=== PATIENT | male | born 1930 | race Caucasian/White ===

== ENCOUNTER 2017-08-03 16:48 | Inpatient (IN) | payer OTHER ==
--- NOTE | 2017-08-03 16:53 | EDPHY ---
HPI/HX/ROS/PE/MDM Narrative: CHIEF COMPLAINT: Bradycardia HPI: This patient is an 87 year old male with history of CAD and bioprosthetic aortic valve placement arriving at the request of his section hand helper, Dr. Whatley, for evaluation of bradycardia. Today, he had a routine followup with Dr. Whatley and was describing an episode of hypertension and bradycardia during a dental procedure several days ago. EKG at that visit showed background sinus rhythm with evidence of complete heart block. Dr. Whatley recommended he present to the emergency department for further evaluation and admission for cardiac monitoring with a possibility for permanent pacemaker implantation tomorrow morning. The patient states he generally feels well and is asymptomatic today. No chest pain or shortness of breath. He denies history of syncope. The patient and his daughter are aware of this plan and have no further complaints. REVIEW OF SYSTEMS: Aside from elements discussed in the HPI, a comprehensive 10-point review of systems was reviewed and is negative. PMH: 1. Aortic valve disease s/p bioprosthetic AVR 2. Asthma 3. Coronary artery disease s/p CABG 4. Colon cancer s/p partial colectomy 5. Hypothyroid 6. Hernia surgery 7. Back injury (starburst fracture) SOCIAL HISTORY: Nonsmoker. Daughter at bedside. Lives in [place]. Retired. PHYSICAL EXAM: General:Patient is alert, in no acute distress. ENT:Eyes are normal to inspection. ENT inspection normal. Neck: Normal inspection. Full range of motion. Respiratory:No respiratory distress. Breath sounds normal bilaterally. Cardiovascular: Regular bradycardia. Strong peripheral pulses. Normal cap refill. Abdomen:The abdomen is nontender to palpation. There are no peritoneal signs. There are normal bowel sounds. Back: Normal to inspection. No tenderness to palpation. Skin: Normal color. No rash. Warm and dry. Extremities: Normal appearance. Full range of motion. Neuro: Oriented x3. Normal motor function. Normal sensory function. ED Course: This 87 y/o male with history of CAD and bioprosthetic AVR presents for evaluation of bradycardia and admission for perioperative management of pacemaker placement. Exam reveals regular bradycardia. Records from the patient' s visit earlier today with Dr. Whatley were reviewed including EKG suggesting complete heart block. Plan for repeat EKG, chest x-ray, labs including CBC, BMP , Coag, Troponin. EKG was ordered and interpreted by myself. Please see [employer] system for official reading. Chest x-ray shows cardiomegaly, no infiltrate. Troponin negative. Laboratory studies otherwise unremarkable. 17:[address] Glynn, hospitalist. He accepts admission for complete heart block. - Data Points Imaging Results: Imaging Impressions Chest X-Ray 08/03/17 16:53 Impression: Cardiomegaly. No failure or effusion. Laboratory Results: Laboratory Results 08/03/17 17:02 08/03/17 17:02 08/03/17 08/03/17 08/03/17 17:02 17:02 17:02 WBC 11.85 10^3/uL H 10^3/uL (3.80-9.50) RBC 4.87 10^6/uL 10^6/uL (4.40-6.38) Hgb 15.1 g/dL g/dL (13.7-17.5) Hct 45.1 % % (40.0-51.0) MCV 92.6 fL fL (81.5-99.8) MCH 31.0 pg pg (27.9-34.1) MCHC 33.5 g/dL g/dL (32.4-36.7) RDW 13.2 % % (11.5-15.2) Plt Count 236 10^3/uL 10^3/uL (150-400) MPV 10.1 fL fL (8.7-11.7) Neut % (Auto) 59.5 % % (39.3-74.2) Lymph % (Auto) 22.6 % % (15.0-45.0) Smyth % (Auto) 8.9 % % (4.5-13.0) Eos % (Auto) 8.0 % H % (0.6-7.6) Baso % (Auto) 0.4 % % (0.3-1.7) Nucleat RBC Rel Count 0.0 % % (0.0-0.2) Absolute Neuts (auto) 7.04 10^3/uL H 10^3/uL (1.70-6.50) Absolute Lymphs (auto) 2.68 10^3/uL 10^3/uL (1.00-3.00) Absolute Monos (auto) 1.06 10^3/uL H 10^3/uL (0.30-0.80) Absolute Eos (auto) 0.95 10^3/uL H 10^3/uL (0.03-0.40) Absolute Basos (auto) 0.05 10^3/uL 10^3/uL (0.02-0.10) Absolute Nucleated RBC 0.00 10^3/uL 10^3/uL (0-0.01) Immature Gran % 0.6 % % (0.0-1.1) Immature Gran # 0.07 10^3/uL 10^3/uL (0.00-0.10) PT 13.0 SEC SEC (12.0-15.0) INR 0.96 (0.83-1.16) APTT 26.9 SEC SEC (23.0-38.0) Sodium 144 mEq/L mEq/L (135-145) Potassium 4.5 mEq/L mEq/L (3.5-5.2) Chloride 104 mEq/L mEq/L (97-110) Carbon Dioxide 24 mEq/l mEq/l (22-31) Anion Gap 16 mEq/L mEq/L (8-16) BUN 32 mg/dL H mg/dL (7-23) Creatinine 1.1 mg/dL mg/dL (0.7-1.3) Estimated GFR > 60 Glucose 89 mg/dL mg/dL (70-100) Calcium 9.1 mg/dL mg/dL (8.5-10.4) Troponin I 0.012 ng/mL ng/mL (0.000-0.034) General Time Seen by Provider: 08/03/17 16:52 Initial Vital Signs: Initial Vital Signs Temperature (C) 36.6 C 08/03/17 16:56 Heart Rate 42 L 08/03/17 16:56 Respiratory Rate 17 08/03/17 16:56 Blood Pressure 192/113 H 08/03/17 16:56 O2 Sat (%) 96 08/03/17 16:56 O2 Delivery Mode Room Air O2 (L/minute) 2 Allergies/Adverse Reactions: No Known Allergies Allergy (Unverified 08/03/17 17:02) Home Medications: Medication Instructions Recorded Albuterol [Proventil Inhaler HFA 1 - 2 puffs IH Q4H PRN 08/03/17 (*)] Departure - Departure Disposition: [facility] Acute Clinical Impression: Heart block Condition: Fair Report Scribed for: Richard Locke Report Scribed by: Romina De Leon Date of Report: 08/03/17 Time of Report: 16:53 Physician Review and Approval Statement: Portions of this note were transcribed by an ED scribe. I personally performed the history, physical exam, and medical decision making; and confirm the accuracy of the information in the transcribed note.
--- NOTE | 2017-08-03 17:01 | CPEKG ---
Heart Rate: 42 RR Interval: 1429 QRSD Interval: 110 QT Interval: 508 QTC Interval: 425 QRS [place]: -12 T Wave [place]: 217 EKG Severity - ABNORMAL ECG - EKG Impression: third degree heart block EKG Impression: NONSPECIFIC INTRAVENTRICULAR CONDUCTION DELAY EKG Impression: INFERIOR INFARCT, AGE INDETERMINATE Electronically Signed By: Garret Cervantes 04-Aug-2017 12:35:26
[2017-08-03 17:15] LABS: PLATELET COUNT 236 10^3/uL (150-400)
[2017-08-03 17:33] LABS: INR 0.96 (0.83-1.16)
[2017-08-03] MEDS ORDERED: ACETAMINOPHEN 325 MG TAB PO PRN (18:38)
[2017-08-03] MEDS ORDERED: ATROPINE SULFATE 1 MG/10 ML SYR ONE (18:40)
[2017-08-03] MEDS ORDERED: ALBUTEROL 60 PUFFS/8 GM MDI IH PRN (18:40)
--- NOTE | 2017-08-03 21:26 | GHP ---
[f rep st] HISTORY AND PHYSICAL DATE OF ADMISSION: 08/03/2017 CHIEF COMPLAINT: Third-degree heart block. HISTORY OF PRESENT ILLNESS: An 87-year-old man with a history of coronary artery disease and CABG pr esents after being sent in from Dr. Whatley's office in third-degree heart block. He has been having s ome dental work done. It was noticed about a month ago that he was bradycardic with an irregular hea rt rate. Recommended that he follow up with his sailboat captain, which he did today. When he saw Dr. Alok murphy, he was found to be in third-degree heart block. Thus, sent into the emergency department for f urther management. He has no chest pain. He has not had any syncope. He has no dizziness or lightheadedness. He has m lamberto felt a little bit more fatigued over the last few months. PAST MEDICAL/SURGICAL HISTORY: 1. Aortic valve disease, status post bioprosthetic AVR. 2. Asthma. 3. Back injury. 4. Back pain. 5. Coronary artery disease. 6. Colon cancer, status post colectomy. 7. Hypothyroid. MEDICATIONS: Please see medication reconciliation. ALLERGIES: No known drug allergies. FAMILY HISTORY: Reviewed and noncontributory. SOCIAL HISTORY: Lives with his . He does not drink or smoke. REVIEW OF SYSTEMS: A 10-point review of systems is conducted and is negative except per HPI. PHYSICAL EXAMINATION: VITAL SIGNS: Blood pressure 192/113, heart rate 42, respiration rate 17, satu rating 96% on room air. Temperature 36.6. GENERAL: Very pleasant man who appears comfortable, in n o acute distress. HEENT: Normocephalic, atraumatic. CARDIOVASCULAR: Irregular. He is bradycardic . He has a sternotomy scar. EXTREMITIES: Warm and well perfused. PULMONARY: Lungs are clear to a uscultation bilaterally. ABDOMEN: Soft, nontender, nondistended. SKIN: No rash. : No Funez. NEUROLOGIC: Alert and oriented x3. He is moving all extremities. PSYCHIATRIC: Normal mood and aff ect. LABORATORY: White count 11.8. INR 0.96. Creatinine is 1.1. Troponin is 0.012. IMAGING: Chest x-ray, which I personally viewed and interpreted, shows status post sternotomy. Card iomegaly. No infiltrates. EKG shows third-degree heart block. IMPRESSION AND PLAN: 1. Third-degree heart block: Suspect that this is progression of heart disease with conduction dise ase. Would also have to consider endocarditis though he has no other signs or symptoms of endocardit is. If he has a fever, we will draw blood cultures but otherwise would not. Plan is for pacemaker t omorrow morning. He was seen by Cardiology, Dr. Whatley, in the clinic today. We will make him n.p.o. after midnight. 2. Coronary artery disease, status post coronary artery bypass graft: Currently not taking any medi cations for this. 3. Aortic valve replacement with a bioprosthetic. 4. Asthma: We will continue his inhaler as needed. 5. Code status: He would like to be full code. 6. Venous thromboembolism risk is moderate. Consider heparin postprocedure. /[id number]/MODL
[2017-08-04 04:04] LABS: PLATELET COUNT 227 10^3/uL (150-400)
[2017-08-04 04:16] LABS: INR 1.02 (0.83-1.16); PROTIME(PATIENT) 13.6 SEC (12.0-15.0)
--- NOTE | 2017-08-04 08:46 | HOSPPROG ---
Hospitalist Progress Note Assessment/Plan: #Complete heart block: EKG reviewed by me. Plan for pacemaker today #CAD: s/p CABG #h/o aortic valve replacement #Diet: npo for pacer #DVT ppx: SCDs #Disp: warrants inpatient admission for CHB, awaiting pacemaker # Subjective: no SOB, dizziness or chest pain Objective: Vital Signs Temp Pulse Resp BP Pulse Ox 36.4 C 34 L 11 L 146/130 H 94 08/04/17 07:57 08/04/17 07:57 08/04/17 07:57 08/04/17 07:57 08/04/17 07:57 Laboratory Results 08/04/17 03:56 08/04/17 03:56 08/03/17 08/04/17 08/05/17 05:59 05:59 05:59 Intake Total 0 Output Total 350 Balance 0 -350 PT 13.6 SEC (12.0-15.0) 08/04/17 03:56 INR 1.02 (0.83-1.16) 08/04/17 03:56 - Physical Exam Constitutional: no apparent distress Ears, Nose, Mouth, Throat: moist mucous membranes Cardiovascular: regular rate and rhythym, bradycardia, No edema Respiratory: no respiratory distress, no rales or rhonchi Gastrointestinal: normoactive bowel sounds, soft, non-tender abdomen Genitourinary: no bladder fullness Skin: warm Musculoskeletal: full muscle strength Neurologic: AAOx3, CN II-XII Intact ICD10 Worksheet Patient Problems: Problems Problem Status Onset Heart block Acute
--- NOTE | 2017-08-04 09:33 | PDMN ---
Medical Necessity Medical necessity: est los>2mn for third-degree heart block, r/o endocarditis; admit for PPM placement, cardiology consult; comorbid CAD, asthma, hx AVR; per order and H&P
--- NOTE | 2017-08-04 11:37 | ASMTCASEMG ---
Living Arrangements What is your living Answers: With Spouse arrangement? Who do you live with? Type Of Residence What kind of residence do Answers: House you live in? Discharge Plan Comments Coordination Status Comments Notes: Patient is an 87yo male who was admitted for third degree heart block, coronary artery disease, aortic valve replacement, and asthma. No therapies have been ordered yet. D/C needs TBD. CM will follow. Date Signed: 08/04/2017 11:36 AM Electronically Signed By:Flor Zuniga LCSW
--- NOTE | 2017-08-04 11:59 | PDHPUP ---
History & Physical Update H&P update statement: This history and physical update is based on an assessment of the patient which was completed after admission or registration (within 24 hours), but prior to the surgery/procedure. H&P update: H&P reviewed & patient examined, no change in patient's condition since H&P completed
--- NOTE | 2017-08-04 11:59 | PDPROPOC ---
Sedation Plan of Care Sedation Plan of Care: vital signs stable, mental status noted, patient educated of risks, benefits, alternatives, patient can tolerate sedation ASA Classification: ASA 3 Planned drugs: fentanyl, midazolam Mallampati Score: Class 3 Mallampati Reference Image: Patient passed 3-3-2 rule?: Yes
[2017-08-04] MEDS ORDERED: BACITRACIN IRRIGATION/NS 50,000 UNITS/1,000 ML BTL IRR ONE (12:00)
[2017-08-04] MEDS ORDERED: NS 1,000 ML IV ONE (12:00)
[2017-08-04] MEDS ORDERED: ceFAZolin 2 GM/SWFI 2 GM/20 ML SYR IVP ONE (12:00)
[2017-08-04] MEDS ORDERED: fentaNYL 100 MCG/2 ML INJ ONE (12:56)
[2017-08-04] MEDS ORDERED: LIDOCAINE 1% 300 MG/30 ML SDV ONE (12:56)
[2017-08-04] MEDS ORDERED: MIDAZOLAM 2 MG/2 ML VIAL ONE (12:56)
[2017-08-04] MEDS ORDERED: IOPAMIDOL (ISOVUE-300) 100 ML BTL ONE (12:57)
[2017-08-04] MEDS ORDERED: BUPIVACAINE 0.5% 30 ML SDV ONE (12:57)
--- NOTE | 2017-08-04 13:35 | EPPROC ---
Electrophysiology Procedure Note: PROCEDURE: MRI conditional dual-chamber pacemaker insertion. DATE OF PROCEDURE: 08/04/2017 DEVICE: Implanted is a [employer] MRI, model # NS0003, serial # [id number]. MRI conditional device. LEADS: The atrial lead is a [employer] Tendril STS, model # 2088TC/52 serial # [id number]. The ventricular lead is a [employer] Tendril STS, model # 2088TC/58 serial # [id number]. COMPLICATIONS: None MANAGER MEDICAL WRITING: Luís Anguiano MD INDICATION AND APPROPRIATE USE CRITERIA: Third degree heart block with symptoms of hypotension. PROCEDURE IN DETAIL: After informed consent was obtained and n.p.o. status was confirmed, the region of the left subclavicular fossa was cleaned, prepped and draped in a sterile fashion. Approximately 30 mL of 1% lidocaine was utilized for local anesthesia. The skin was sharply incised with a #10 blade. Electrocautery and local pressure were used for hemostasis. Sharp and blunt dissection was used to form a pacemaker pocket overlying the pectoralis major fascia. An 18-gauge Cook needle was used to gain access to the left subclavian vein x 2. J wires were advanced into the inferior vena cava. A 7-F peel-away sheath was advanced over the lateral wire. Wire and stylet were removed. Ventricular lead was manipulated with care into the RV apex under direct fluoroscopic guidance and screwed into place. Threshold was tested and found to be 0.8 V at 0.5 ms width. R-wave amplitude was measured at 7.5 mV. Lead impedance was 672 Ohms. The lead was sutured in place with #0 Ethibond. The medial wire was used to place a second peel-away sheath wire and dilator was removed and a second pacer lead was manipulated with care into the right atrial appendage and screwed into place. The threshold was 1.3 V at 0.5 ms width. P-wave amplitude was 1.7 mV, lead impedance was 461 Ohms. Mode: DDD, Base/Max Track: 60/120 bpm, Max sensor: 120 bpm. The peel away sheath was removed and the leads were sutured in place with a #0 Ethibond. The pocket was thoroughly flushed and checked for bleeding. Hemostasis was established. The antibiotic soaked gauze was removed from the pocket. The atrial lead serial number was checked and placed in the upper pole lead housing of the pulse generator and set screw firmly applied. The procedure was repeated for the RV lead. The device was placed in the pocket and sutured in place with # 0 Ethibond. The skin was closed with a 3-layered 3-0 Vicryl, 2-0 Vicryl and 4-0 Monocryl repair with excellent wound edge opposition and hemostasis documented. The patient returned to the post cath recovery unit in good and stable condition where a stat postoperative chest x-ray and EKG will be obtained. FINAL IMPRESSION: Successful dual-chamber pacemaker insertion without immediate complication. Patient Problems: Problems Problem Status Onset Heart block Acute
--- NOTE | 2017-08-04 15:23 | CPEKG ---
Heart Rate: 138 RR Interval: 435 QRSD Interval: 270 QT Interval: 476 QTC Interval: 722 QRS [place]: 96 T Wave [place]: -44 EKG Severity - ABNORMAL ECG - EKG Impression: ATRIAL-VENTRICULAR DUAL-PACED COMPLEXES EKG Impression: NONSPECIFIC INTRAVENTRICULAR CONDUCTION DELAY EKG Impression: MINIMAL ST DEPRESSION Electronically Signed By: Moe Ivy 05-Aug-2017 10:05:21
[2017-08-05 07:56] VITALS: RESP 22; TEMP 98
--- NOTE | 2017-08-05 08:44 | CPEKG ---
Heart Rate: 60 RR Interval: 1000 P-R Interval: 176 QRSD Interval: 196 QT Interval: 568 QTC Interval: 568 P [place]: 52 QRS [place]: -87 T Wave [place]: 90 EKG Severity - ABNORMAL ECG - EKG Impression: A-V DUAL-PACED RHYTHM WITH SOME INHIBITION Electronically Signed By: Moe Ivy 05-Aug-2017 10:05:16
[2017-08-05] MEDS ORDERED: ASPIRIN EC 81 MG TAB PO SCH (09:00)
--- NOTE | 2017-08-05 09:15 | HOSPPROG ---
Hospitalist Progress Note Assessment/Plan: #Complete heart block: EKG reviewed by me. Plan for pacemaker today #CAD: s/p CABG #h/o aortic valve replacement #Diet: npo for pacer #DVT ppx: SCDs #Disp: warrants inpatient admission for CHB, awaiting pacemaker # Subjective: developed dermatitis under dressing at pacer site. No fever Objective: Vital Signs Temp Pulse Resp BP Pulse Ox 36.7 C 60 22 H 144/83 H 97 08/05/17 07:54 08/05/17 07:54 08/05/17 07:54 08/05/17 07:54 08/05/17 07:54 Laboratory Results 08/04/17 03:56 08/04/17 03:56 08/04/17 08/05/17 08/06/17 05:59 05:59 05:59 Intake Total 0 100 Output Total 750 Balance 0 -650 PT 13.6 SEC (12.0-15.0) 08/04/17 03:56 INR 1.02 (0.83-1.16) 08/04/17 03:56 - Physical Exam Constitutional: no apparent distress Eyes: PERRL Ears, Nose, Mouth, Throat: moist mucous membranes Cardiovascular: regular rate and rhythym, other (RU chest pacer site with surrounding erythema, no blisters or purulence) Respiratory: no respiratory distress Gastrointestinal: normoactive bowel sounds, soft, non-tender abdomen Genitourinary: No moore in urethra Skin: warm Musculoskeletal: full muscle strength Neurologic: AAOx3, CN II-XII Intact Psychiatric: interacting appropriately ICD10 Worksheet Patient Problems: Problems Problem Status Onset Heart block Acute
--- NOTE | 2017-08-05 09:36 | PDCARPN ---
Cardiology Progress Note Chief Complaint: Patient reporting mild pain at ppm incisional site. Assessment/Plan: Assessment: 87-year-old male with significant cardiac history that includes bioprosthetic aortic valve in conjunction with single vessel bypass surgery May 2014 in [place]. Patient more recently was diagnosed and treated for influenza A in the beginning of June. Patient also with noted history of hypothyroidism, currently not on therapy and mild cognitive impairment. Saw in our office on August 03, for complain of fatigue, had recently seen his dentist, noted lower heart rate, was told to see Cardiology. Electrocardiogram done at that time showing third-degree AV block with ventricular escape rhythm. Rate high 30s to low 40s. Patient reporting no chest pain, lightheadedness, near-syncope , or syncopal events. Patient sent to [facility] and admitted to intensive care overnight. Taken to cardiac catheterization lab yesterday by Dr. Anguiano, in which a dual chamber ppm implantation was done , with atrial and ventricular lead placement. Today, patient has had a device check by [facility], showing functioning within normal limits. Patient has been AV paced throughout the evening with no other malignant arrhythmias noted. Vital signs remained stable. No fevers overnight. Patient incision site noted to be erythema around dressing site, but incision without redness. Intact with Steri-Strips. Patient denies of chest pain, pressure, shortness of breath. Plan: 1. Third-degree heart block: s/p PPM yesterday, noted erythema around pacemaker insertion site. Patient was seen with Dr. Ivy, does not appear to be infection , but possible chemical reaction from ChloraPrep used to prep his incisional site for surgery. Have marked area, have discussed with patient the needing to monitor site for infection. We have also discussed post pacemaker implantation discharge instructions. Will notify our office, and have patient have early follow-up, either Monday or Monday of next week. From Cardiology standpoint, patient can be discharged home after chest x-ray has been completed in assuring no delayed pneumothorax. A.m. chest x-ray still pending. 2. Valvular heart disease: Patient has remote aortic valve replacement Patient appears to be fairly euvolemic. Most recent echocardiogram was done 09/21 normal LV size with mild asymmetric septal hypertrophy, normal LV systolic function with no regional wall motion abnormalities, EF estimated between 60-65. Diastolic dysfunction was noted, normal RV size and function, aortic valve is bioprosthetic peak aortic velocity at 2.8 mL a 2nd , peak LVOT velocity at 1.4 mL/sec , peak aortic gradient of 33 mm Hg, mean aortic gradient of 18 mm Hg. Mild MR, mild TR, PA systolic pressure estimated at 29 mm Hg. Ascending aortic root measured at 3.67 cm. Consider repeating echocardiogram for therapeutic monitoring , this can be scheduled as an outpatient. 3. CAD: Status post CABG with SVG to RCA at time of valve surgery in 2013 Patient reporting no symptoms of chest pain or shortness of breath. Negative troponin on admission. Patient has not been on any anti-platelet therapy , discussed with him today, and denies of any adverse reaction to aspirin therapy in the past. Will start him on 81 mg p.o. q.day. He is currently also not on statin therapy. Reviewing laboratory studies does not appear that he has had a fasting lipid panel drawn since moving to [place] in 2015. He has eaten today. Will have him get a fasting lipid panel before his follow-up visit , at that time, with consideration of starting him on statin therapy in outpatient setting. 4. Hypothyroidism: Mildly elevated TSH. Will defer treatment to Hospitalist and patient's PCP for care. 08/05/17 09:35 Subjective: Patient denies of any chest pressure or pain. Reports no shortness of breath. Has been up and walking the unit without difficulties. Does report mild incisional site pain with palpitation. Denies of any fevers, chills, or night sweats. Reviewed/Discussed With: family (Patient Daughter Cass on the phone), hospitalist (Dr Peterson), other (Dr Ivy) Objective: Vital Signs (8 Hrs) Temp Pulse Resp BP Pulse Ox 08/05/17 07:54 36.7 C 60 22 H 144/83 H 97 08/05/17 06:00 61 156/67 H 92 08/05/17 04:00 60 134/59 H 92 Intake/Output (24 Hrs) 08/04/17 08/05/17 08/06/17 05:59 05:59 05:59 Intake Total 0 100 Output Total 750 Balance 0 -650 Intake: Oral (ml) 0 100 Output: Urine (ml) 750 Urinal 750 Other: Weight 69.4 kg Number of Voids Toilet 1 1 Urinal 2 Number of Stools Toilet 1 Result Diagrams: 08/05/17 09:40 08/05/17 09:40 Cardiac Labs: Cardiac Lab Results (72 Hrs) 08/04/17 08/04/17 08/04/17 03:56 03:56 03:56 WBC 12.07 H RBC 4.58 Hgb 14.2 Hct 41.5 MCV 90.6 MCH 31.0 MCHC 34.2 RDW 13.1 Plt Count 227 MPV 10.3 Neut % (Auto) 60.7 Lymph % (Auto) 20.5 Nolan % (Auto) 9.1 Eos % (Auto) 8.7 H Baso % (Auto) 0.4 Nucleat RBC Rel Count 0.0 Absolute Neuts (auto) 7.33 H Absolute Lymphs (auto) 2.47 Absolute Monos (auto) 1.10 H Absolute Eos (auto) 1.05 H Absolute Basos (auto) 0.05 Absolute Nucleated RBC 0.00 Immature Gran % 0.6 Immature Gran # 0.07 PT 13.6 INR 1.02 Sodium 142 Potassium 4.1 Chloride 107 Carbon Dioxide 22 Anion Gap 13 BUN 30 H Creatinine 0.9 Estimated GFR > 60 Glucose 94 Calcium 8.5 Total Bilirubin 0.7 AST 34 ALT 34 Alkaline Phosphatase 75 Total Protein 6.8 Albumin 3.7 TSH 08/03/17 22:02 WBC RBC Hgb Hct MCV MCH MCHC RDW Plt Count MPV Neut % (Auto) Lymph % (Auto) Nolan % (Auto) Eos % (Auto) Baso % (Auto) Nucleat RBC Rel Count Absolute Neuts (auto) Absolute Lymphs (auto) Absolute Monos (auto) Absolute Eos (auto) Absolute Basos (auto) Absolute Nucleated RBC Immature Gran % Immature Gran # PT INR Sodium Potassium Chloride Carbon Dioxide Anion Gap BUN Creatinine Estimated GFR Glucose Calcium Total Bilirubin AST ALT Alkaline Phosphatase Total Protein Albumin TSH 5.620 H - Physical Exam Constitutional: WDWN Ears, Nose, Mouth, Throat: moist mucous membranes Cardiovascular: regular rate and rhythm, no rubs, systolic murmur (1 to 2/6 upper chest.), pulses symmetric bilat, No jugular vein distention Peripheral Pulses: 2+: carotid (R), carotid (L) Respiratory: other (Lungs are clear to auscultation, no rhonchi, rales, or wheezing noted.) Gastrointestinal: normoactive bowel sounds Skin: warm, no edema, other Neurologic: AAOx3 Psychiatric: cooperative, interactive, following commands, not anxious ( erythema left lateral of pacemaker incision. Does not appear to be infectious comma but does appear more as a possible chemical burn. Possibly due to ChloraPrep that was used to prep for ppm implantation. ) ICD10 Worksheet Patient Problems: Problems Problem Status Onset Heart block Acute
[2017-08-05 11:50] VITALS: BP 144/76; PULSE 61; O2SAT 94
--- NOTE | 2017-08-05 13:37 | GDS ---
[f rep st] DISCHARGE SUMMARY DISCHARGE DIAGNOSES: 1. Complete heart block, status post pacemaker. 2. History of valvular heart disease with AVR. 3. Coronary disease status post coronary artery bypass graft. 4. Acute contact dermatitis. PROCEDURE: Permanent pacemaker placement, 08/04/2017. HISTORY OF PRESENT ILLNESS: An 87-year-old male with history of coronary disease and CABG, sent in f rom Dr. Whatley's office after being noted to be in third-degree heart block. He has been having some dental work done and it was noticed about a month ago that he was bradycardic with an irregular heart rate. At that time he was recommended to follow up with his property administrator. He denies chest pain, sy ncope, dizziness, or lightheadedness. He has felt a little bit more fatigued over the last few weeks . PAST MEDICAL HISTORY: 1. Asthma. 2. Back pain. 3. History of colon cancer status post colectomy. 4. Hypothyroidism. HOSPITAL COURSE BY PROBLEM: 1. Complete heart block: This was seen on EKG. He underwent permanent pacemaker placement without issue. Chest x-ray today is stable without a pneumothorax. He will follow up with Dr. Anguiano, per C ardiology recommendations. 2. Skin: Acute contact dermatitis. Developed mild redness, irritation at the pacer site, most likel y related to ChloraPrep. There is no evidence of infection. He was given strict return precautions. He has remained afebrile. 3. History of valvular heart disease: He is euvolemic, has a history of AVR. 4. Coronary disease status post CABG. 5. Asthma: Continue albuterol. 6. Hypothyroidism. 7. Weakness: Patient is complaining of lower extremity weakness over the last few days. He was baldomero luated by PT who recommended a walker and outpatient therapy which I will write scripts for. DISPOSITION: Patient is stable for discharge home with outpatient therapy and walker. MEDICATIONS: No new medications. FOLLOWUP: 1. [facility]. 2. Return if note worsening irritation at the pacer site with acute dermatitis. /[id number]/MODL
--- NOTE | 2017-08-05 15:55 | ASDISCHSUM ---
Discharge Information Plan Status:Home with No Needs Medically Cleared to Leave: Discharge Date:08/05/2017 03:00 PM CM D/C Disposition:Home, Routine, Self-Care ADT D/C Disposition:Home, Routine, Self-Care Projected Discharge Date:08/05/2017 03:00 PM Transportation at D/C:Family Discharge Delay Reason: Follow-Up Date:08/05/2017 03:00 PM Discharge Slot: Final Diagnosis: Placement Information Patient Contact Information Contact Name:SHANNAN Relationship:Daughter Address: Work Phone: City: [facility] Phone: State/Zip Code: Email: Financial Information Financial Class: Primary Plan Desc:MEDICARE INPATIENT Primary Plan Number:[id number] Secondary Plan Desc:[employer] Secondary Plan Number:[id number] Assessment Information [facility] Initial CM Assessment Living Arrangements What is your living Answers: With Spouse arrangement? Who do you live with? Type Of Residence What kind of residence do Answers: House you live in? Discharge Plan Comments Coordination Status Comments Notes: Patient is an 87yo male who was admitted for third degree heart block, coronary artery disease, aortic valve replacement, and asthma. No therapies have been ordered yet. D/C needs TBD. CM will follow. Date Signed: 08/04/2017 11:36 AM Electronically Signed By:Flor Zuniga LCSW Intervention Information
== END 2017-08-05 15:00 | disposition home or self-care (01) | DRG 244 ==
LOC: F2N 18:41
PROVIDERS: ADMIT Student in an Organized Health Care Education/Training Program; ATTEND Student in an Organized Health Care Education/Training Program
PROC: 02HK3JZ Insertion of Pacemaker Lead into Right Ventricle, Percutaneous Approach (ICD-10-PCS; principal; 2017-08-04)
PROC: 02H63JZ Insertion of Pacemaker Lead into Right Atrium, Percutaneous Approach (ICD-10-PCS; principal; 2017-08-04)
PROC: 0JH606Z Insertion of Pacemaker, Dual Chamber into Chest Subcutaneous Tissue and Fascia, Open Approach (ICD-10-PCS; principal; 2017-08-04)
DX: I44.2 Atrioventricular block, complete (principal); I25.10 Atherosclerotic heart disease of native coronary artery without angina pectoris; L23.89 Allergic contact dermatitis due to other agents; J45.909 Unspecified asthma, uncomplicated; E03.9 Hypothyroidism, unspecified; Z95.1 Presence of aortocoronary bypass graft; Z95.3 Presence of xenogenic heart valve
CPT/HCPCS: 93005-PO; 97161-GP; C1785; C1898; G8978-GP-CI; G8979-GP-CI; J0461; J0690; J2250; J3010; Q9967

== ENCOUNTER → 2017-08-03 | Outpatient (CLI) | payer OTHER | LOC: BHLMT 15:30 | PROVIDERS: ATTEND Internal Medicine Cardiovascular Disease | DX: I35.9 Nonrheumatic aortic valve disorder, unspecified (principal); I25.10 Atherosclerotic heart disease of native coronary artery without angina pectoris; I44.2 Atrioventricular block, complete; Z95.1 Presence of aortocoronary bypass graft | CPT/HCPCS: 93005-PO ==

== ENCOUNTER → 2018-01-15 | Outpatient (CLI) | payer OTHER | LOC: GIMAGING 12:15 | PROVIDERS: ATTEND Internal Medicine | DX: S09.93XA Unspecified injury of face, initial encounter (principal) | CPT/HCPCS: 70150-PO ==